=== PATIENT | male | born 1965 | race Caucasian/White ===

== ENCOUNTER 2023-09-10 13:11 | Emergency (ER) | payer OTHER ==
--- NOTE | 2023-09-10 14:18 | ED ---
General Adult HPI - General Source: patient Mode of arrival: ambulatory Limitations: no limitations <Santana Hernandez - Last Filed: 09/10/23 16:29> - General Source: RN notes reviewed <Adwoa Schwartz - Last Filed: 09/12/23 00:18> - General Chief complaint: Upper Respiratory Infection Stated complaint: Sinus Infection - History of Present Illness Initial comments: Quick note: 58-year-old male presents to the emergency room for sinus issues. Patient states that a month ago his right ear popped and he has had pressure along the right ear and right face. He thinks it is a sinus infection. No nasal drainage, nasal obstruction, loss of smell. No fevers. Verbally signed by Santana Hernandez PAC 09/10/22 [id number] (Santana Hernandez) Quick note reviewed: This is a pleasant 58-year-old male with no significant past medical history who presents to the emergency department with right ear congestion. Patient reports that he has had regular pressure for approximately 1 month. He has seen urgent care multiple times for this is provided him classes of antibiotics and steroids. He has not been taking the steroids as prescribed. She believes that he may have a sinus infection although denies any nasal drainage, nasal congestion, loss of taste withdrawal, fever or chills or cough. (Adwoa Schwartz) - Related Data Allergies Allergy/AdvReac Type Severity Reaction Status Date / Time No Known Allergies Allergy Verified 09/10/23 14:05 Review of Systems ROS Other: All systems not noted in ROS Statement are negative. <Santana Hernandez - Last Filed: 09/10/23 16:29> ROS Other: All systems not noted in ROS Statement are negative. <Adwoa Schwartz - Last Filed: 09/12/23 00:18> ROS Statement: Those systems with pertinent positive or pertinent negative responses have been documented in the HPI. Past Medical History Past Medical History: No Reported History History of Any Multi-Drug Resistant Organisms: None Reported Past Surgical History: No Surgical Hx Reported Past Psychological History: No Psychological Hx Reported Smoking Status: Current every day smoker Past Alcohol Use History: Occasional Past Drug Use History: Marijuana <Santana Hernandez - Last Filed: 09/10/23 16:29> General Exam Limitations: no limitations <Santana Hernandez - Last Filed: 09/10/23 16:29> <Adwoa Schwartz - Last Filed: 09/12/23 00:18> - General Exam Comments Initial Comments: Visual physical exam: Well appearing, in no acute distress. (Santana Hernandez) General: Alert, in no acute distress Head: atraumatic normocephalic. Eyes PERRL, EOMI intact, mucous membranes moist Respiratory: Lungs clear to auscultation bilaterally Cardiovascular: Regular rate and rhtyhm Abdominal: Soft without guarding or rebound Extremities: Normal inspection with full range of motion and normal capillary refill Neuroogic: alert and oriented 3, CN II-XII intact, able to ambulate with steady gait Skin: warm dry and intact with normal color (Adwoa Schwartz) Course Vital Signs 09/10/23 09/10/23 14:03 18:24 Temperature 98.1 F 98.1 F Pulse Rate 90 87 Respiratory 20 18 Rate Blood Pressure 133/80 130/79 O2 Sat by Pulse 96 97 Oximetry Medical Decision Making <Adwoa Schwartz - Last Filed: 09/12/23 00:18> - Medical Decision Making Was pt. sent in by a medical professional or institution (, PA, [employer], urgent care, hospital, or intermediate...) When possible be specific @ -[No] Did you speak to anyone other than the patient for history (EMS, parent, family, police, friend...)? What history was obtained from this source @ -[No] Did you review nursing and triage notes (agree or disagree)? Why? @ -[I reviewed and agree with nursing and triage notes] Were old charts reviewed (outside hosp., previous admission, EMS record, old EKG, old radiological studies, urgent care reports/EKG's, intermediate records)? Report findings @ -[No old charts were reviewed] Differential Diagnosis (chest pain, altered mental status, abdominal pain women, abdominal pain men, vaginal bleeding, weakness, fever, dyspnea, syncope, headache, dizziness, GI bleed, back pain, seizure, CVA, palpatations, mental health, musculoskeletal)? @ -[not applicable] EKG interpreted by me (3pts min.). @ -[As above] X-rays interpreted by me (1pt min.). @ -[None done] CT interpreted by me (1pt min.). @ -[None done] U/S interpreted by me (1pt. min.). @ -[None done] What testing was considered but not performed or refused? (CT, X-rays, U/S, labs)? Why? @ -[None] What meds were considered but not given or refused? Why? @ -[None] Did you discuss the management of the patient with other professionals (professionals i.e. , PA, [employer]INGER, lab, RT, psych nurse, web content & social media manager, sow farm barn technician, teacher, navigation officer, case hardener)? Give summary @ -[No] Was smoking cessation discussed for >3mins.? @ -[No] Was critical care preformed (if so, how long)? @ -[No] Were there social determinants of health that impacted care today? How? (Homelessness, low income, unemployed, alcoholism, drug addiction, transportation, low edu. Level, literacy, decrease access to med. care, group home, rehab)? @ -[No] Was there de-escalation of care discussed even if they declined (Discuss DNR or withdrawal of care, Hospice)? DNR status @ -[No] What co-morbidities impacted this encounter? (DM, HTN, Smoking, COPD, CAD, Cancer, CVA, ARF, Chemo, Hep., AIDS, mental health diagnosis, sleep apnea, morbid obesity)? @ -[None] Was patient admitted / discharged? Hospital course, mention meds given and route, prescriptions, significant lab abnormalities, going to OR and other pertinent info. @ Discharged. This is a pleasant 4-year-old male who presents the emergency department with right ear congestion. Patient had a thorough history and physical exam performed. I TM is unremarkable. Non-erythematous and nonbulging. Patient was educated on the importance of filling previous steroid prescription. He was offered ENT referral however he was concerned due to lack of insurance. He was provided local list of PCPs. Return precautions were discussed at length. Discharged in stable condition. Case is discussed with Dr. Clement, ED attending who agrees with plan Undiagnosed new problem with uncertain prognosis? @ -[No] Drug Therapy requiring intensive monitoring for toxicity (Heparin, Nitro, Insulin, Cardizem)? @ -[No] Were any procedures done? @ -[No] Diagnosis/symptom? @ -right ear congestion ] Acute, or Chronic, or Acute on Chronic? @ -Acute Uncomplicated (without systemic symptoms) or Complicated (systemic symptoms)? @ -Uncomplicated Side effects of treatment? @ -[No] Exacerbation, Progression, or Severe Exacerbation? @ -[No] Poses a threat to life or bodily function? How? (Chest pain, [place], [place], pneumonia, PE, COPD, DKA, ARF, appy, cholecystitis, CVA, Diverticulitis, Homicidal, Suicidal, threat to staff... and all critical care pts) @ -Low likleihood (Adwoa Schwartz) - Lab Data Lab Results 09/10/23 Range/Units 14:08 Influenza Type A (PCR) Not Detected (Not Detectd) Influenza Type B (PCR) Not Detected (Not Detectd) RSV (PCR) Not Detected (Not Detectd) SARS-CoV-2 (PCR) Not Detected (Not Detectd) Disposition <Santana Hernandez - Last Filed: 09/10/23 16:29> Is patient prescribed a controlled substance at d/c from ED?: No Time of Disposition: 17:45 <Adwoa Schwartz - Last Filed: 09/12/23 00:18> Clinical Impression: Ear congestion Disposition: HOME SELF-CARE Condition: Stable Additional Instructions: Please take prednisone for the next 5 days Please return to the nearest emergency department if fever or discharge or pain develops Referrals: None,Stated [Primary Care Provider] - 1-2 days Nathan Tabor MD [STAFF PHYSICIAN] - 1-2 days Forms: Area PCPs
[2023-09-10 14:20] VITALS: TEMP 98.1
[2023-09-10] MEDS ORDERED: methylPREDNISolone SOD SUCCI 125 MG/2 ML VIAL IM ONE (17:44)
[2023-09-10 18:41] VITALS: BP 130/79; PULSE 87; RESP 18
== END 2023-09-10 18:45 | disposition home or self-care (01) ==
LOC: EC 13:11
DX: H83.8X1 Other specified diseases of right inner ear (principal); F12.90 Cannabis use, unspecified, uncomplicated; F17.200 Nicotine dependence, unspecified, uncomplicated; Z20.822 Contact with and (suspected) exposure to COVID-19
CPT/HCPCS: 87636; 99283; 96372; J2930

== ENCOUNTER 2023-10-27 10:41 | Emergency (ER) | payer OTHER ==
[2023-10-27 11:07] VITALS: RESP 18; TEMP 98.6
--- NOTE | 2023-10-27 11:30 | ED ---
ENT HPI - General Chief complaint: ENT Stated complaint: Ear congestion Time Seen by Provider: 10/27/23 10:52 Source: patient Mode of arrival: ambulatory Limitations: no limitations - History of Present Illness Initial comments: The patient is a 4-year-old gentleman is otherwise healthy presents emergency room with complaints of congestion to the right ear. Patient states it feels full and sometimes it goes. He has some mild discomfort but denies any severe abdominal pain. Denies any drainage. Patient denies any significant cough, fevers, sore throat or other viral symptoms. He has some mild sinus congestion as well. Was seen in September for similar symptoms. Had been given steroids and nasal spray with some improvement. He was unable to follow up with the PCP or ENT as he is having a difficult time finding, and he takes his insurance. - Related Data Previous Rx's Medication Instructions Recorded Cetirizine HCl/Pseudoephedrine 1 tab PO Q12H 5 Days #10 tab 10/27/23 [Zyrtec-D ER 5 mg-120 mg Tablet] Fluticasone Nasal [place] [Flonase 2 spray EA NOSTRIL DAILY #16 gm 10/27/23 Nasal [place]] predniSONE 10 mg PO BID 5 Days #10 tab 10/27/23 Allergies Allergy/AdvReac Type Severity Reaction Status Date / Time No Known Allergies Allergy Verified 10/27/23 10:45 Review of Systems ROS Statement: Those systems with pertinent positive or pertinent negative responses have been documented in the HPI. ROS Other: All systems not noted in ROS Statement are negative. Past Medical History Past Medical History: No Reported History History of Any Multi-Drug Resistant Organisms: None Reported Past Surgical History: No Surgical Hx Reported Past Psychological History: No Psychological Hx Reported Smoking Status: Current every day smoker Past Alcohol Use History: Occasional Past Drug Use History: Marijuana General Exam Limitations: no limitations General appearance: alert, in no apparent distress Head exam: Present: atraumatic, normocephalic Eye exam: Present: normal appearance, PERRL ENT exam: Present: normal exam, normal oropharynx, mucous membranes dry, mucous membranes moist, other (bilateral eustachain tube dysfunction, no erythema or warmth, no bulging) Neck exam: Present: full ROM. Absent: tenderness, lymphadenopathy Respiratory exam: Present: normal lung sounds bilaterally. Absent: respiratory distress, wheezes Cardiovascular Exam: Present: regular rate Neurological exam: Present: alert, oriented X3 Psychiatric exam: Present: normal affect, normal mood Skin exam: Present: warm, dry Course Vital Signs 10/27/23 10/27/23 10:44 11:38 Temperature 98.6 F Pulse Rate 101 H 94 Respiratory 18 18 Rate Blood Pressure 184/82 149/102 O2 Sat by Pulse 98 96 Oximetry - Reevaluation(s) Reevaluation #1: 10/27/23 1120 Issues emergency room. Discussed management with the patient. Discussed patient's symptoms are And management with attending ED physician Dr. Grayson today. Medical Decision Making - Medical Decision Making Was pt. sent in by a medical professional or institution (, PA, [employer], urgent care, hospital, or longterm...) When possible be specific @ -[No] Did you speak to anyone other than the patient for history (EMS, parent, family, police, friend...)? What history was obtained from this source @ -[No] Did you review nursing and triage notes (agree or disagree)? Why? @ -[I reviewed and agree with nursing and triage notes] Were old charts reviewed (outside hosp., previous admission, EMS record, old EKG, old radiological studies, urgent care reports/EKG's, longterm records)? Report findings @ -yes old charts were reviewed] Differential Diagnosis (chest pain, altered mental status, abdominal pain women, abdominal pain men, vaginal bleeding, weakness, fever, dyspnea, syncope, headache, dizziness, GI bleed, back pain, seizure, CVA, palpatations, mental health, musculoskeletal)? @ -[otitis media, otitis externa, sinusitis, uri, eustachian tube dysfunction EKG interpreted by me (3pts min.). @ -[As above] X-rays interpreted by me (1pt min.). @ -[None done] CT interpreted by me (1pt min.). @ -[None done] U/S interpreted by me (1pt. min.). @ -[None done] What testing was considered but not performed or refused? (CT, X-rays, U/S, labs)? Why? @ -[None] What meds were considered but not given or refused? Why? @ -[None] Did you discuss the management of the patient with other professionals (professionals i.e. , PA, D[employer] MARKET[employer] INTERN, lab, RT, psych nurse, long term care social worker, enamel pulverizer, teacher, deputy probation officer, showcase trimmer)? Give summary @ -[No] Was smoking cessation discussed for >3mins.? @ -[No] Was critical care preformed (if so, how long)? @ -[No] Were there social determinants of health that impacted care today? How? (Homelessness, low income, unemployed, alcoholism, drug addiction, transportation, low edu. Level, literacy, decrease access to med. care, custodial, rehab)? @ -[No] Was there de-escalation of care discussed even if they declined (Discuss DNR or withdrawal of care, Hospice)? DNR status @ -[No] What co-morbidities impacted this encounter? (DM, HTN, Smoking, COPD, CAD, Cancer, CVA, ARF, Chemo, Hep., AIDS, mental health diagnosis, sleep apnea, morbid obesity)? @ -[None] Was patient admitted / discharged? Hospital course, mention meds given and route, prescriptions, significant lab abnormalities, going to OR and other pertinent info. @ -[Patient is stable to follow up as an outpatient. There is no indication hospitalization is needed at this time. He may manage eustachian tube dysfunction with Flonase and decongestants. Undiagnosed new problem with uncertain prognosis? @ -[No] Drug Therapy requiring intensive monitoring for toxicity (Heparin, Nitro, Insulin, Cardizem)? @ -[No] Were any procedures done? @ -[No] Diagnosis/symptom? @ -[eustachian tube dysfunction] Acute, or Chronic, or Acute on Chronic? @ -[acute Uncomplicated (without systemic symptoms) or Complicated (systemic symptoms)? @ -[default] Side effects of treatment? @ -[No] Exacerbation, Progression, or Severe Exacerbation? @ -[No] Poses a threat to life or bodily function? How? (Chest pain, [place], [place], pneumonia, PE, COPD, DKA, ARF, appy, cholecystitis, CVA, Diverticulitis, Homicidal, Suicidal, threat to staff... and all critical care pts) @ -[No] Disposition Clinical Impression: Eustachian tube dysfunction, Otalgia of both ears Disposition: HOME SELF-CARE Condition: Good Instructions (If sedation given, give patient instructions): Antihistamin e/Decongestant (By mouth), Decongestant/Expectorant (By mouth), Earache (ED) Prescriptions: Fluticasone Nasal [place] [Flonase Nasal [place]] 2 spray EA NOSTRIL DAILY #16 gm predniSONE 10 mg PO BID 5 Days #10 tab Cetirizine HCl/Pseudoephedrine [Zyrtec-D ER 5 mg-120 mg Tablet] 1 tab PO Q12H 5 Days #10 tab Is patient prescribed a controlled substance at d/c from ED?: No Referrals: None,Stated [Primary Care Provider] - 1-2 days Nathan Tabor MD [STAFF PHYSICIAN] - 1-2 days Time of Disposition: 11:30
[2023-10-27 11:40] VITALS: BP 149/102; PULSE 94
== END 2023-10-27 11:39 | disposition home or self-care (01) ==
LOC: EC 10:41
DX: H69.83 Other specified disorders of Eustachian tube, bilateral (principal); F17.200 Nicotine dependence, unspecified, uncomplicated; F12.90 Cannabis use, unspecified, uncomplicated
CPT/HCPCS: 99283

== ENCOUNTER 2023-11-03 13:08 | Emergency (ER) | payer OTHER ==
--- NOTE | 2023-11-03 14:40 | XR ---
EXAMINATION TYPE: XR chest 2V DATE OF EXAM: 11/03/2023 COMPARISON: None HISTORY: 58-year-old male with congestion TECHNIQUE: PA and lateral views FINDINGS: Heart normal size. Aorta and pulmonary vasculature within normal limits. Hyperinflation with biapical pleural parenchymal scarring. No consolidation or pleural effusion is seen. IMPRESSION: COPD. No acute process seen.
--- NOTE | 2023-11-03 14:47 | ED ---
General Adult HPI - General Chief complaint: Upper Respiratory Infection Stated complaint: Sinsus, hearing complications Time Seen by Provider: 11/03/23 14:47 Source: patient, RN notes reviewed, old records reviewed Mode of arrival: ambulatory Limitations: no limitations - History of Present Illness Initial comments: Patient is a 58-year-old male presenting to the ER with a chief complaint of congestion. Patient states this has been an ongoing problem for a a while. Patient has been treated with antihistamines, nasal spray without relief. Patient has not followed up outpatient. Patient states that he is having difficulty with insurance which is inhibiting him from following up outpatient. Patient is endorsing mild shortness of breath. Does report he smokes 1 to 2 packs daily. States that his right ear feels full and sinuses have pressure. Denies any fevers or chills recently. Denies any chest pain, abdominal pain, constipation/diarrhea, peripheral edema. - Related Data Previous Rx's Medication Instructions Recorded Cetirizine HCl/Pseudoephedrine 1 tab PO Q12H 5 Days #10 tab 10/27/23 [Zyrtec-D ER 5 mg-120 mg Tablet] Fluticasone Nasal [place] [Flonase 2 spray EA NOSTRIL DAILY #16 gm 10/27/23 Nasal [place]] predniSONE 10 mg PO BID 5 Days #10 tab 10/27/23 predniSONE 50 mg PO DAILY #5 tab 11/03/23 Allergies Allergy/AdvReac Type Severity Reaction Status Date / Time No Known Allergies Allergy Verified 10/27/23 10:45 Review of Systems ROS Statement: Those systems with pertinent positive or pertinent negative responses have been documented in the HPI. ROS Other: All systems not noted in ROS Statement are negative. Past Medical History Past Medical History: No Reported History History of Any Multi-Drug Resistant Organisms: None Reported Past Surgical History: No Surgical Hx Reported Past Psychological History: No Psychological Hx Reported Smoking Status: Current every day smoker Past Alcohol Use History: Occasional Past Drug Use History: Marijuana General Exam Limitations: no limitations General appearance: alert, in no apparent distress Head exam: Present: atraumatic, normocephalic, normal inspection ENT exam: Present: normal exam, normal oropharynx, mucous membranes moist, TM's normal bilaterally, other (Brown discoloration to posterior tongue) Neck exam: Present: normal inspection. Absent: tenderness, meningismus, lymphadenopathy Respiratory exam: Present: normal lung sounds bilaterally. Absent: respiratory distress, wheezes, rales, rhonchi, stridor Cardiovascular Exam: Present: regular rate, normal rhythm, normal heart sounds. Absent: systolic murmur, diastolic murmur, rubs, gallop, clicks Neurological exam: Present: alert, oriented X3, CN II-XII intact Psychiatric exam: Present: normal affect, normal mood Skin exam: Present: warm, dry, intact, normal color. Absent: rash Course Vital Signs 11/03/23 11/03/23 13:09 16:32 Temperature 99 F 98.9 F Pulse Rate 90 89 Respiratory 20 18 Rate Blood Pressure 192/83 179/85 O2 Sat by Pulse 99 97 Oximetry Medical Decision Making - Medical Decision Making Was pt. sent in by a medical professional or institution (TERA Perez, [employer], urgent care, hospital, or custodial...) When possible be specific @ -No Did you speak to anyone other than the patient for history (EMS, parent, family, police, friend...)? What history was obtained from this source @ -No Did you review nursing and triage notes (agree or disagree)? Why? @ -I reviewed and agree with nursing and triage notes Were old charts reviewed (outside hosp., previous admission, EMS record, old EKG, old radiological studies, urgent care reports/EKG's, custodial records)? Report findings @ -Yes, ER visit from 10-27-2023. Patient diagnosed with eustachian tube dysfunction. Received steroids and Flonase. Differential Diagnosis (chest pain, altered mental status, abdominal pain women, abdominal pain men, vaginal bleeding, weakness, fever, dyspnea, syncope, headache, dizziness, GI bleed, back pain, seizure, CVA, palpatations, mental health, musculoskeletal)? @ -COVID, RSV, influenza, viral sinusitis, pneumonia this list is not meant to be all-inclusive EKG interpreted by me (3pts min.). @ -None X-rays interpreted by me (1pt min.). @ -Chest x-ray interpreted by me shows COPD changes. No acute process. CT interpreted by me (1pt min.). @ -None done U/S interpreted by me (1pt. min.). @ -None done What testing was considered but not performed or refused? (CT, X-rays, U/S, labs)? Why? @ -None What meds were considered but not given or refused? Why? @ -None Did you discuss the management of the patient with other professionals (professionals i.e. , PA, RUNWAY MODEL, lab, RT, psych nurse, public health social worker, body designer, teacher, assurance officer, case loader operator)? Give summary @ -No Was smoking cessation discussed for >3mins.? @ -I discussed smoking cessation for greater than 3 minutes. The risk of smoking were discussed with the patient including but not limited to risks of cancer, stroke, coronary artery disease and COPD. Also discussed with patient were multiple methods of quitting smoking. Lastly we discussed the financial cost of smoking. Was critical care preformed (if so, how long)? @ -No Were there social determinants of health that impacted care today? How? (Homelessness, low income, unemployed, alcoholism, drug addiction, transportation, low edu. Level, literacy, decrease access to med. care, longterm, rehab)? @ -Patient having difficulties with insurance coverage. Was there de-escalation of care discussed even if they declined (Discuss DNR or withdrawal of care, Hospice)? DNR status @ -No What co-morbidities impacted this encounter? (DM, HTN, Smoking, COPD, CAD, Cancer, CVA, ARF, Chemo, Hep., AIDS, mental health diagnosis, sleep apnea, morbid obesity)? @ -Smoker, COPD Was patient admitted / discharged? Hospital course, mention meds given and route, prescriptions, significant lab abnormalities, going to OR and other pertinent info. @ -Discharge. Patient is a 58-year-old male presented to the ER with chief complaint of congestion. History and physical exam completed. Vitals stable. Patient in no signs of acute distress. Lung sounds clear to auscultation bilaterally. Nontoxic-appearing. COVID, RSV, influenza negative. Chest x-ray interpreted by me shows COPD changes no acute process. Results discussed with patient, all questions answered. I discussed smoking cessation for greater than 3 minutes. The risk of smoking were discussed with the patient including but not limited to risks of cancer, stroke, coronary artery disease and COPD. Also discussed with patient were multiple methods of quitting smoking. Lastly we discussed the financial cost of smoking. Patient prescribed steroids. Advised him to follow-up with PCP soon as possible. ENT referral given for further evaluation. Patient be discharged stable condition with follow-up to PCP/ENT. Return parameters discussed. Patient expressed understanding and agreement with care plan. Undiagnosed new problem with uncertain prognosis? @ -No Drug Therapy requiring intensive monitoring for toxicity (Heparin, Nitro, Insulin, Cardizem)? @ -No Were any procedures done? @ -No Diagnosis/symptom? @ -Sinusitis/nicotine dependence Acute, or Chronic, or Acute on Chronic? @ -Acute Uncomplicated (without systemic symptoms) or Complicated (systemic symptoms)? @ -Uncomplicated Side effects of treatment? @ -No Exacerbation, Progression, or Severe Exacerbation? @ -No Poses a threat to life or bodily function? How? (Chest pain, [place], [place], pneumonia, PE, COPD, DKA, ARF, appy, cholecystitis, CVA, Diverticulitis, Homicidal, Suicidal, threat to staff... and all critical care pts) @ -No - Lab Data Lab Results 11/03/23 Range/Units 14:15 Influenza Type A (PCR) Not Detected (Not Detectd) Influenza Type B (PCR) Not Detected (Not Detectd) RSV (PCR) Not Detected (Not Detectd) SARS-CoV-2 (PCR) Not Detected (Not Detectd) - Radiology Data Radiology results: report reviewed, image reviewed Disposition Clinical Impression: Sinusitis, Eustachian tube dysfunction, Otalgia of both ears Disposition: HOME SELF-CARE Condition: Stable Additional Instructions: Is follow-up with PCP/ENT. Return to the ER for any new or worsening symptoms. Prescriptions: predniSONE 50 mg PO DAILY #5 tab Is patient prescribed a controlled substance at d/c from ED?: No Referrals: Gisell Vuong [Primary Care Provider] - 1-2 days Calos Baker MD [STAFF PHYSICIAN] - 1-2 days Time of Disposition: 16:08
[2023-11-03 16:33] VITALS: BP 179/85; PULSE 89; RESP 18; TEMP 98.9
== END 2023-11-03 16:33 | disposition home or self-care (01) ==
LOC: EC 13:08
DX: J32.9 Chronic sinusitis, unspecified (principal); H69.93 Unspecified Eustachian tube disorder, bilateral; J44.9 Chronic obstructive pulmonary disease, unspecified; F17.210 Nicotine dependence, cigarettes, uncomplicated; F12.90 Cannabis use, unspecified, uncomplicated; Z20.822 Contact with and (suspected) exposure to COVID-19
CPT/HCPCS: 71046; 87636; 99284; 99406

== ENCOUNTER → 2024-02-14 | Outpatient (CLI) | payer OTHER ==
--- NOTE | 2024-02-21 01:57 | CTL ---
EXAMINATION TYPE: CT Low Dose Lung DATE OF EXAM: 02/14/2024 2:29 PM CLINICAL INDICATION:Male, 59 years old with history of Z12.2 LUNG CA SCREEN F17.210 NICOTINE DEPENDEN CE; personal hx of nicotine dependence 1ppd X 30 years current smoker , history of tobacco use. COMPARISON: None. TECHNIQUE: CT scan of the chest obtained without contrast from approximately the lung apices through the upper abdomen. Axial, coronal and sagittal reformatted images were obtained. Low dose technique w as utilized for nodule screening purposes. CT DLP: 82.1 mGycm, Automated exposure control for dose reduction was used. CT Contrast: IV contrast used: None. Oral contrast used: None. FINDINGS: Lack of intravenous contrast and low dose technique limits the evaluation of the vascular and soft ti ssue structures. LUNGS: No evidence of pulmonary fibrosis. No evidence of focal consolidation or infiltrate. There are emphysematous changes bilaterally, moderate to severe in degree. Fibrocalcific scarring seen at the bilateral apices. NODULES: There are a couple small calcified granulomas on the right. No clinically significant nodules are dem onstrated. PLEURA: No sizeable pleural effusion or pneumothorax. AIRWAY: Central airways are patent. LOWER NECK: No significant findings. MEDIASTINUM: No evidence of enlarged mediastinal or hilar nodes, in the limits of noncontrast exam.. HEART: Normal heart size. Mild coronary artery calcification. No appreciable pericardial effusion. VASCULATURE: Ascending aorta is mildly ectatic measuring 3.4 cm, descending is 2.5 cm. Pulmonary trun k measures roughly 2.5 CM, normal in size. Vessels otherwise not further assessed without contrast. SOFT TISSUES/LYMPH NODES: Unremarkable soft tissues. No axillary adenopathy. UPPER ABDOMEN: No significant findings. MUSCULOSKELETAL: Mild disc degeneration changes are present throughout the thoracolumbar spine. No a cute findings. IMPRESSION: 1. No clinically significant pulmonary nodules. CT LUNG-RADS AND FOLLOWUP RECOMMENDATION: Lung-RADS Category 1, Negative: Continue annual screening with LDCT in 12 months. C Modifier (Personal history of lung cancer?): No. S Modifier (Other clinically significant or potentially significant findings?): No. Other significant or potentially significant abnormalities: None. Recommend smoking cessation (if current smoker), or continuation of smoking cessation (if prior smoke r). Annual screening for lung cancer with low-dose computed tomography is recommended in adults ages 55 to 77 years who have a 30 pack-year smoking history and currently smoke or have quit within the pa st 15 years. Screening should be discontinued once a person has not smoked for 15 years or develops a health problem that substantially limits life expectancy or the ability or willingness to have curat deshaun lung surgery. Lung-RADS v.2022 Link Here [email or web address]
== END | disposition home or self-care (01) ==
LOC: RADCTMAIN 13:43
PROVIDERS: ATTEND Student in an Organized Health Care Education/Training Program
DX: Z12.2 Encounter for screening for malignant neoplasm of respiratory organs (principal); F17.210 Nicotine dependence, cigarettes, uncomplicated
CPT/HCPCS: 71271